=== PATIENT | male | born 1935 | race Caucasian/White ===

== ENCOUNTER 2016-12-25 15:27 | Emergency (ER) | END 2016-12-25 18:21 | disposition home or self-care (01) | DX: M94.0 Chondrocostal junction syndrome [Tietze] (principal); I10 Essential (primary) hypertension | CPT/HCPCS: 36415; 71010; 80053; 83690; 83880; 84484; 85025; 93005; 94664; 96374; 99285; J1885 ==

== ENCOUNTER → 2017-10-30 | Outpatient (CLI) | END | disposition home or self-care (01) ==

== ENCOUNTER → 2017-11-11 | Outpatient (CLI) | END | disposition home or self-care (01) ==

== ENCOUNTER 2018-07-05 15:09 | Inpatient (IN) | payer MEDICARE, OTHER ==
[~2018-07-05] VITALS: Ht 170.2 cm; Wt 92.3 kg
[~2018-07-05 15:09] MED LIST: IBUP-1561 PO
[2018-07-05] MEDS ORDERED: SODIUM CHLORIDE 0.9% 1L BAG IV* STA (15:23)
[2018-07-05] MEDS ORDERED: CEFTRIAXONE 1 GM/50 ML (PMX) 50 ML IVPB STA (15:23)
[2018-07-05] MEDS ORDERED: FINA5TAB4 PO (16:24)
[2018-07-05] MEDS ORDERED: ENAL10TA PO (16:24)
[2018-07-05] MEDS ORDERED: METF500T24 PO (16:25)
[2018-07-05] MEDS ORDERED: TRAZ-149 PO (16:25)
[2018-07-05] MEDS ORDERED: AMLO2.5T78 PO (16:26)
[2018-07-05] MEDS ORDERED: ASPI-817 PO (16:26)
[2018-07-05] MEDS ORDERED: RANO10002 PO (16:27)
[2018-07-05] MEDS ORDERED: ATOR20TA38 PO (16:28)
[2018-07-05] MEDS ORDERED: SILD20TA PO (16:29)
[2018-07-05] MEDS ORDERED: ONDANSETRON 4 MG INJ IV PRN ×2 (17:30→19:00)
[2018-07-05] MEDS ORDERED: ACETAMINOPHEN 325 MG TAB PO PRN ×2 (17:30→19:00)
[2018-07-05] MEDS ORDERED: SOD CHLORIDE 0.9% 1,000 ML IV STA (18:23)
--- NOTE | 2018-07-05 18:47 | HP ---
Date/Time of Note Date/Time of Note DATE: 07/05/18 TIME: 18:43 Assessment/Plan VTE Prophylaxis SCD applied (from Nsg): Yes Pharmacological prophylaxis: NA/contraindicated Pharm contraindication: low risk/ambulating Lines/Catheters IV Catheter Type (from Nrsg): Saline Lock Assessment/Plan Hospital Course 1. Dizziness with presyncope secondary to static hypotension and dehydration Labs are consistent with dehydration, continue IV fluids Hold home blood pressure medications 2. Pulmonary hypertension Continue home sildenafil 3. Hypertension Hold home Norvasc and enalapril 4. Diabetes Continue home metformin 5. BPH Continue home finasteride Prophylaxis: SCDs Result Diagram: 07/05/18 1534 07/05/18 1534 Results 24hrs Laboratory Tests Test 07/05/18 15:29 07/05/18 15:34 POC Venous Lactate 2.0 White Blood Count 10.9 #H Red Blood Count 4.98 Hemoglobin 15.6 Hematocrit 47.9 Mean Corpuscular Volume 96.2 Mean Corpuscular Hemoglobin 31.3 Mean Corpuscular Hemoglobin Concent 32.6 Red Cell Distribution Width 14.5 Platelet Count 208 Mean Platelet Volume 11.0 H Immature Granulocytes % 0.600 H Neutrophils % 65.9 Lymphocytes % 25.3 Monocytes % 7.1 Eosinophils % 0.8 Basophils % 0.3 Nucleated Red Blood Cells % 0.0 Immature Granulocytes # 0.060 H Neutrophils # 7.2 Lymphocytes # 2.8 Monocytes # 0.8 Eosinophils # 0.1 Basophils # 0.0 Nucleated Red Blood Cells # 0.0 Prothrombin Time 13.1 Prothrombin Time Ratio 1.0 INR International Normalized Ratio 0.98 Activated Partial Thromboplast Time 29.7 Sodium Level 140 Potassium Level 4.3 Chloride Level 111 H Carbon Dioxide Level 19 L Anion Gap 10 Blood Urea Nitrogen 22 H Creatinine 1.31 H Est Glomerular Filtrat Rate mL/min Glucose Level 126 Calcium Level 9.1 Total Bilirubin 0.8 Direct Bilirubin 0.00 Indirect Bilirubin 0.8 Aspartate Amino Transf (AST/SGOT) 19 Alanine Aminotransferase (ALT/SGPT) 13 Alkaline Phosphatase 102 Troponin I < 0.012 Total Protein 6.9 Albumin 3.6 Globulin 3.30 H Albumin/Globulin Ratio 1.09 HPI/ROS Admit Date/Time Admit Date/Time 07/05/2018 Hx of Present Illness Patient is 83-year-old male history of hypertension, pulmonary hypertension, BPH, diabetes who presents from his PCPs office complaining of dizziness. In the ER patient was noted to be hypertensive with laboratory evidence of dehydration. Patient has no other complaints at this time. Of note patient is a poor historian. ROS Constitutional: no complaints, improved Eyes: no complaints ENT: no complaints Respiratory: no complaints Cardiovascular: no complaints Gastrointestinal: no complaints Genitourinary: no complaints Musculoskeletal: no complaints Skin: no complaints Neurologic: dizziness Endocrine: no complaints Lymphatic: no complaints Psychological: no complaints, nl mood/affect Immunologic: no complaints PMH/Family/Social Past Medical History As per [facility] Medications Current Medications Ondansetron HCl (Zofran Inj) 4 mg ER BRIDGE PRN IV NAUSEA/VOMITING; Start 07/05/18 at 17:30; Stop 07/06/18 at 17:29 Acetaminophen (Tylenol Tab) 650 mg ER BRIDGE PRN PO .MILD PAIN 1-3 OR TEMP; Start 07/05/18 at 17:30; Stop 07/06/18 at 17:29 Sodium Chloride 1,000 ml @ 1,000 mls/hr Q1H STAT IV Last administered on 07/05/18at 18:40; Admin Dose 1,000 MLS/HR; Start 07/05/18 at 18:23; Stop 07/05/18 at 19:22 Coded Allergies: No Known Allergy (Unverified , 07/05/18) Family History Significant Family History: no pertinent family hx Social History Alcohol Use: rarely Smoking Status: Never smoker Drug Use: none Exam/Review of Systems Vital Signs Vitals Vital Signs Date Temp Pulse Resp B/P (MAP) Pulse Ox O2 O2 Flow FiO2 Time Delivery Rate 07/05/18 71 18 82/54 (63) 96 Nasal 2.0 18:03 Cannula 07/05/18 96.9 15:18 Exam Constitutional: alert Respiratory: clear to auscultation Cardiovascular: regular rate and rhythm Gastrointestinal: soft; No distended Musculoskeletal: nl extremities to inspection ARETHA ROBLEDO July 05, 2018 18:47
--- NOTE | 2018-07-05 18:59 | PN ---
DATE: 07/05/2018 SUBJECTIVE: The patient states he is feeling well at this time. He did have an EGD and colonoscopy today. No complications. The patient does not complained of abdominal pain or nausea or vomiting. OBJECTIVE: GENERAL: The patient is a well-developed, well-nourished male in no acute distress. VITAL SIGNS: Temperature is 97.9 orally, pulse 71, respirations 18, blood pressure 115/62, pulse oxi metry 98% on room air. SKIN: No ecchymosis, no petechiae or rashes but pale. There are some spider telangiectasias. HEENT: Normocephalic. No evidence of trauma. Pupils are equal, round, react to light and accommoda tion. Sclerae have trace icterus. Oral mucosa is moist without lesions. NECK: Supple. No jugular venous distention or thyroid enlargement. CHEST: Clear to auscultation and percussion. No rhonchi, wheezes, rales or rubs. No pain on percus david of spine, sternum, clavicles or ribs. BREASTS: No gynecomastia. HEART: Regular sinus rhythm. No S3, S4 or murmurs. No rubs. ABDOMEN: Mildly distended, but soft. The liver is not palpable, but the spleen is palpable approxim ately 8 cm below the left costal margin in the anterior axillary line. It is firm. Bowel sounds are active. There is no obvious ascites. EXTREMITIES: Good range of motion. No clubbing, no edema or cyanosis. No palpable cords or Homans sign. NEUROLOGIC: Normal. There is no asterixis. LABORATORY DATA: Sodium 138, potassium 3.7, BUN 10, creatinine 0.7. Total bilirubin 2.7 and direct bilirubin is 0, AST 51, ALT 68, alkaline phosphatase 442. WBC 3200 with absolute neutrophil count 2200, hemoglobin 10.1, hematocrit 33.9, MCV 72, MCH 21.5, MCH C 29.8, RDW is 20.8, platelet count 59,000, reticulocyte count is 1.8% with absolute retic of 79,000. ASSESSMENT: 1. Pancytopenia secondary to hypersplenism. 2. 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 3. Possible hemolytic anemia. DISCUSSION: The patient was actually seen by me in 09/2017. At that time, the patient was admitted with pancytopenia. He was found to have obvious cirrhosis with splenomegaly. At that time, the lorene ent was obviously iron deficient. He did have a mild indirect hyperbilirubinemia at that time. Also , however, had a decreased haptoglobin. At that time, the patient did have changes in red blood cell size and shape. I have reviewed the peripheral smear of this patient on admission. There is hypochromasia and microc ytosis, but not significant red blood cell shape or size changes. There are no spherocytes or fragme nted red blood cells. No "pencil cells" seen. The patient does have significant indirect hyperbilirubinemia at this time. No obvious hemolysis on review of the patient's peripheral blood film. We will obtain haptoglobin as well as an LDH. We will also obtain direct antibody test (direct Co[place] s) as well as a cold agglutinin level. The patient does have a normal folate level and increased vitamin B12 as expected in patients with th is degree of liver disease. We will supplement patient's folic acid intake however. If he is hemoly zing, we will require increased folic acid. Dictated By: IDANIA GRACIA MD SR/NTS Conf#: [id number] DID#: [id number] CC: SAL ROME MD;*EndCC*
[2018-07-05] MEDS ORDERED: NACL 0.9% 3 ML SYG IV SCH (19:00)
[2018-07-05] MEDS ORDERED: HYDROCODONE/APAP (5/325) TAB PO PRN (19:00)
[2018-07-05] MEDS ORDERED: morphine 2 MG INJ IV PRN (19:00)
[2018-07-05] MEDS ORDERED: DOCUSATE SODIUM 100 MG CAP PO PRN (19:00)
[2018-07-05] MEDS ORDERED: ZOLPIDEM 5 MG TAB PO PRN (19:00)
[2018-07-05] MEDS ORDERED: GLUCOSE GEL 15 GRAM TUBE PO PRN ×2 (19:30)
[2018-07-05] MEDS ORDERED: GLUCAGON 1 MG INJ IM PRN (19:30)
[2018-07-05] MEDS ORDERED: GLUCOSE GEL 15 GRAM TUBE BUCCAL PRN (19:30)
[2018-07-05] MEDS ORDERED: DEXTROSE 50% 50 ML SYRINGE IV PRN ×2 (19:30)
[2018-07-05] MEDS: SOD CHLORIDE 0.9% 1,000 ML IV SCH (19:41)
[2018-07-05 20:00] VITALS: BP 108/56; PULSE 70; RESP 18
[2018-07-05 20:20] VITALS: Ht 170.2 cm; Wt 92.3 kg
[2018-07-05 20:28] VITALS: PULSE 70
[2018-07-05] MEDS: INSULIN ASPART [NOVOLOG] 3 ML PEN SC SCH (21:00)
[2018-07-05] MEDS: SILDENAFIL 20 MG TAB PO SCH (21:00)
[2018-07-05] MEDS ORDERED: traZODone 50 MG TAB PO SCH (21:00)
[2018-07-05] MEDS: RANOLAZINE (SR) 500 MG TAB PO SCH (21:00)
[2018-07-05] MEDS ORDERED: ATORVASTATIN 20 MG TAB PO SCH (21:00)
--- NOTE | 2018-07-05 21:29 | ERD ---
ER Documentation Chief Complaint Chief Complaint BIB RA FOR EVAL OF DIZZINESS FROM CLINIC. PT A&OX4. NEURO INTACT HPI Patient is an 83-year-old male with no medical problems who presents with dizziness. Please note a carton marker machine was used but the patient is potentially confused or hard of hearing and is unable to obtain history with the model making supervisor. The patient was brought in by ambulance. The patient reports dizziness for 2 days. The patient was sent from the clinic for low blood pressure and confusion. Upon review of old medical records this is the patient's fourth visit to the ER since 2017. He goes to a local clinic for his care. ROS All systems reviewed and are negative except as per history of present illness. Medications Home Meds Reported Medications Sildenafil Citrate* (Sildenafil Citrate*) 20 Mg Tablet, 20 MG PO TID, TAB 07/05/18 Atorvastatin Calcium* (Atorvastatin Calcium*) 20 Mg Tablet, 20 MG PO QHS, #30 TAB 07/05/18 Ranolazine* (Ranexa*) 1,000 Mg Tab.sr.12h, 1000 MG PO Q12, TAB 07/05/18 Amlodipine Besylate* (Amlodipine Besylate*) 2.5 Mg Tablet, 2.5 MG PO DAILY, #30 TAB 07/05/18 Aspirin* (Aspirin* EC) 81 Mg Tablet.dr, 81 MG PO DAILY, TAB 07/05/18 Metformin Hcl* (Metformin Hcl*) 500 Mg Tablet, 500 MG PO WITH BREAKFAST DINNE, #60 TAB 07/05/18 Trazodone Hcl* (Desyrel*) 50 Mg Tab, 50 MG PO QHS, #30 TAB 07/05/18 Finasteride* (Finasteride*) 5 Mg Tablet, 5 MG PO DAILY, TAB 07/05/18 Enalapril Maleate* (Enalapril Maleate*) 10 Mg Tablet, 10 MG PO DAILY, TAB 07/05/18 Discontinued Scripts Ibuprofen* (Motrin*) 400 Mg Tab, 400 MG PO Q8 for PAIN AND/OR INFLAMMATION, #30 TAB Prov:NICHOLAS NGUYEN MD 12/25/16 Allergies Allergies: Coded Allergies: No Known Allergy (Unverified , 07/05/18) PMhx/Soc History of Surgery: Yes Hx Cardiac Disorders: Yes (htn) Hx Psychiatric Problems: No Hx Miscellaneous Medical Probl: No Hx Alcohol Use: No Hx Substance Use: No Hx Tobacco Use: No Smoking Status: Never smoker FmHx Family History: No diabetes Physical Exam Vitals Vital Signs Date Temp Pulse Resp B/P (MAP) Pulse Ox O2 O2 Flow FiO2 Time Delivery Rate 07/05/18 80 20 75/47 (56) 95 Nasal 2.0 16:39 Cannula 07/05/18 96.9 83 16 83/57 (66) 90 15:18 Physical Exam Const: No acute distress Head: Atraumatic Eyes: Normal Conjunctiva ENT: Normal External Ears, Nose and Mouth. Neck: Full range of motion. No meningismus. Resp: Clear to auscultation bilaterally Cardio: Regular rate and rhythm, no murmurs Abd: Soft, non tender, non distended. Normal bowel sounds Skin: No petechiae or rashes Back: No midline or flank tenderness Ext: No cyanosis, or edema Neur: Awake, hard of hearing or confused and it is difficult to obtain history from this patient Result Diagram: 07/05/18 1534 07/05/18 1534 Results 24 hrs Laboratory Tests Test 07/05/18 15:29 07/05/18 15:34 POC Venous Lactate 2.0 mmol/L White Blood Count 10.9 10^3/ul Red Blood Count 4.98 10^6/ul Hemoglobin 15.6 g/dl Hematocrit 47.9 % Mean Corpuscular Volume 96.2 fl Mean Corpuscular Hemoglobin 31.3 pg Mean Corpuscular Hemoglobin Concent 32.6 g/dl Red Cell Distribution Width 14.5 % Platelet Count 208 10^3/UL Mean Platelet Volume 11.0 fl Immature Granulocytes % 0.600 % Neutrophils % 65.9 % Lymphocytes % 25.3 % Monocytes % 7.1 % Eosinophils % 0.8 % Basophils % 0.3 % Nucleated Red Blood Cells % 0.0 /100WBC Immature Granulocytes # 0.060 10^3/ul Neutrophils # 7.2 10^3/ul Lymphocytes # 2.8 10^3/ul Monocytes # 0.8 10^3/ul Eosinophils # 0.1 10^3/ul Basophils # 0.0 10^3/ul Nucleated Red Blood Cells # 0.0 10^3/ul Prothrombin Time 13.1 Sec Prothrombin Time Ratio 1.0 INR International Normalized Ratio 0.98 Activated Partial Thromboplast Time 29.7 Sec Sodium Level 140 mmol/L Potassium Level 4.3 mmol/L Chloride Level 111 mmol/L Carbon Dioxide Level 19 mmol/L Anion Gap 10 Blood Urea Nitrogen 22 mg/dl Creatinine 1.31 mg/dl Est Glomerular Filtrat Rate mL/min mL/min Glucose Level 126 mg/dl Calcium Level 9.1 mg/dl Total Bilirubin 0.8 mg/dl Direct Bilirubin 0.00 mg/dl Indirect Bilirubin 0.8 mg/dl Aspartate Amino Transf (AST/SGOT) 19 IU/L Alanine Aminotransferase (ALT/SGPT) 13 IU/L Alkaline Phosphatase 102 IU/L Troponin I < 0.012 ng/ml Total Protein 6.9 g/dl Albumin 3.6 g/dl Globulin 3.30 g/dl Albumin/Globulin Ratio 1.09 Current Medications Medications Dose Sig/Juan Jose Start Time Status Last (Trade) Ordered Route PRN Stop Time Admin Dose Reason Admin Sodium 1,950 ml BOLUS OVER 2 07/05/18 DC 07/05/18 Chloride HOURS STAT 15:23 15:42 (NS) IV* 07/05/18 15:24 Ceftriaxone 50 ml @ ONCE STAT 07/05/18 DC 07/05/18 Sodium 100 mls/hr IVPB 15:23 16:36 07/05/18 15:52 Procedures/MDM EKG read by me: Rate/Rhythm: Regular rate and rhythm at a normal rate Intervals: Normal Impression: No evidence of ischemia or arrhythmia Patient is an 83-year-old male with no medical problems who presents with dizziness and low blood pressure. The patient had a full septic work-up done but at this point I see no signs of infection and I doubt sepsis or septic shock. I believe the patient likely has dehydration and acute renal failure and was given fluid resuscitation. His blood pressure has improved. The patient will need admission to the panel team for further evaluation and cardiac monitoring as he did have near syncope. The patient will be admitted to a telemetry inpatient bed. Departure Diagnosis: Primary Impression: Dizziness Additional Impressions: Acute renal failure Acute renal failure type: unspecified Qualified Codes: N17.9 - Acute kidney failure, unspecified Near syncope Condition: Stable SAL ROME MD July 05, 2018 21:29
[2018-07-06] VITALS (8 sets, daily range): BP systolic 112–152; BP diastolic 59–74; PULSE 54–70; RESP 16–20
[2018-07-06] MEDS ORDERED: ACCU-CHEK XX SCH (02:00)
[2018-07-06] MEDS: SOD CHLORIDE 0.9% 1,000 ML IV SCH ×2 (04:30→14:23)
[2018-07-06] MEDS: INSULIN ASPART [NOVOLOG] 3 ML PEN SC SCH ×3 (07:36→17:11)
[2018-07-06] MEDS: RANOLAZINE (SR) 500 MG TAB PO SCH (08:44)
[2018-07-06] MEDS: metFORMIN 500 MG TAB PO SCH ×2 (08:45→17:06)
[2018-07-06] MEDS: SILDENAFIL 20 MG TAB PO SCH ×2 (09:00→13:06)
[2018-07-06] MEDS ORDERED: ASPIRIN (EC) 81 MG TAB PO SCH (09:00)
[2018-07-06] MEDS ORDERED: FINASTERIDE 5 MG TAB PO SCH (09:00)
--- NOTE | 2018-07-06 10:35 | PDOCDIS ---
Discharge Instructions CONDITION [id number] Patient Condition: [id number] Good HOME CARE INSTRUCTIONS: [id number] Diet Instructions: [id number] Regular ACTIVITY: [id number] Activity Restrictions: [id number] No Restrictions FOLLOW UP/APPOINTMENTS Follow-up Plan FOLLOW UP WITH YOUR PCP IN 1-2 WEEKS ARETHA ROBLEDO July 06, 2018 10:35
--- NOTE | 2018-07-06 14:14 | DS ---
Date/Time of Note Date/Time of Note DATE: 07/06/18 TIME: 14:11 Discharge Summary Admission/Discharge Info Admit Date/Time July 05, 2018 at 17:16 Discharge Date/Time July 06 Discharge Diagnosis 1. Dizziness with presyncope secondary to orthostatic hypotension and dehydration Symptoms have resolved with fluids Resume home meds 2. Pulmonary hypertension Continue home sildenafil 3. Hypertension Resume home meds 4. Diabetes Continue home metformin 5. BPH Continue home finasteride Patient Condition: Good Hospital Course Patient is 83-year-old male history of hypertension, pulmonary hypertension, BPH, diabetes who presents from his PCPs office complaining of dizziness. In the ER patient was noted to be hypotensive with laboratory evidence of dehydration. Patient received IV fluids with resolution of his dizziness and improvement in renal function. Patient was stable for DC, the day of discharge patient vitals, labs and physical exam are stable. Home Meds Reported Medications Sildenafil Citrate* (Sildenafil Citrate*) 20 Mg Tablet, 20 MG PO TID, TAB 07/05/18 Atorvastatin Calcium* (Atorvastatin Calcium*) 20 Mg Tablet, 20 MG PO QHS, #30 TAB 07/05/18 Ranolazine* (Ranexa*) 1,000 Mg Tab.sr.12h, 1000 MG PO Q12, TAB 07/05/18 Amlodipine Besylate* (Amlodipine Besylate*) 2.5 Mg Tablet, 2.5 MG PO DAILY, #30 TAB 07/05/18 Aspirin* (Aspirin* EC) 81 Mg Tablet.dr, 81 MG PO DAILY, TAB 07/05/18 Metformin Hcl* (Metformin Hcl*) 500 Mg Tablet, 500 MG PO WITH BREAKFAST DINNE, #60 TAB 07/05/18 Trazodone Hcl* (Desyrel*) 50 Mg Tab, 50 MG PO QHS, #30 TAB 07/05/18 Finasteride* (Finasteride*) 5 Mg Tablet, 5 MG PO DAILY, TAB 07/05/18 Enalapril Maleate* (Enalapril Maleate*) 10 Mg Tablet, 10 MG PO DAILY, TAB 07/05/18 Discontinued Scripts Ibuprofen* (Motrin*) 400 Mg Tab, 400 MG PO Q8 for PAIN AND/OR INFLAMMATION, #30 TAB Prov:NICHOLAS NGUYEN MD 12/25/16 Follow-up Plan FOLLOW UP WITH YOUR PCP IN 1-2 WEEKS Primary Care Provider Not On Staff Doctor Time spent on discharge: > 30 minutes ARETHA ROBLEDO July 06, 2018 14:14
== END 2018-07-06 19:10 | disposition home or self-care (01) | DRG 312 ==
LOC: E/R 15:09 → 6WM 17:16 → CANRESERV 19:45
PROVIDERS: ADMIT Internal Medicine; ATTEND Internal Medicine
DX: I95.1 Orthostatic hypotension (principal); D61.818 Other pancytopenia; K76.6 Portal hypertension; D58.9 Hereditary hemolytic anemia, unspecified; E86.0 Dehydration; I27.20 Pulmonary hypertension, unspecified; I10 Essential (primary) hypertension; E11.9 Type 2 diabetes mellitus without complications; N40.0 Benign prostatic hyperplasia without lower urinary tract symptoms; D73.1 Hypersplenism; K74.60 Unspecified cirrhosis of liver; E80.6 Other disorders of bilirubin metabolism
CPT/HCPCS: 70450; 71045; 80048; 80053; 82962; 83036; 83605; 83735; 84100; 84484; 85025; 85610; 85730; 93005; 96374; 97161; J0696; J1815; J7030